=== PATIENT | female | born 1975 | race Caucasian/White ===

== ENCOUNTER → 2022-02-18 08:49 | Outpatient (BNVA) | payer OTHER, SELFPAY | PROVIDERS: Family Provider Family Medicine; PCP Family Medicine; Visit Provider Family Medicine | DX: E78.5 Hyperlipidemia, unspecified (principal); E83.119 Hemochromatosis, unspecified; G62.9 Polyneuropathy, unspecified; I10 Essential (primary) hypertension; G47.00 Insomnia, unspecified | CPT/HCPCS: 80053; 80061; 82607; 82728; 83550; 84443; 85025 ==

== ENCOUNTER 2022-09-01 14:22 | Emergency (ER) | payer OTHER, SELFPAY ==
--- NOTE | 2022-09-01 14:23 | XR_ITS ---
WS: [id number] Exam: XR hand RT min 3V* [id number] Date/Time of Exam: 09/01/2022 2:33 PM Reason For Exam: Laceration to pinky and ring finger No fracture or dislocation noted. Soft tissue laceration of the distal fifth finger. No soft tissue f oreign bodies are seen. XR/XR hand RT min 3V* [id number] IMPRESSION: 1. No bony injury noted. 2. Soft tissue laceration of the distal fifth finger.
[2022-09-01 14:34] VITALS: PULSE 76; RESP 16; TEMP 36.6; O2SAT 97; BMI 38.7
--- NOTE | 2022-09-01 14:56 | W.ED.WOUNDLC ---
HPI - Wound/Laceration General: Chief Complaint: Wound/Laceration Stated Complaint: right hand, pinky and ring finger lac Time Seen by Provider: 09/01/22 14:27 History of Present Illness: Patient is a 47-year-old female comes to the ED with a laceration to fourth and fifth digits on right hand. 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 She reached into one of the thinks and there was a knife under the water and it caused a small laceration to fourth and fifth digits on right hand. Bleeding was controlled with bandage. Patient is up-to-date on her tetanus. Associated symptoms: Denies chills, fever(s), nausea or vomiting Review of Systems Const: Denies: fever(s), chills or fatigue Eyes: Denies: change in vision or eye discomfort ENMT: Denies: throat pain, odynophagia, nasal discharge or nasal congestion Card: Denies: chest pain, palpitations, edema, swelling of feet/ankles, dyspnea on exertion or orthopnea Resp: Denies: dyspnea, productive cough or non-productive cough GI: Denies: abdominal pain, nausea, vomiting, diarrhea, constipation or hematochezia : Denies: flank pain, dysuria or hematuria Musc: Denies: neck pain, back pain or extremity swelling Skin/Breast: Reports: new lesions (Laceration to fourth and fifth digit right hand.); Denies: rash Neuro: Denies: headache(s), numbness in extremities or weakness in extremities [facility] ED PFSH: Medical History Dyslipidemia Hemochromatosis History of renal stone Hypertension Insomnia Neuropathy Tobacco dependence due to cigarettes Surgical History History of dilatation and curettage History of nonchemical tubal occlusion History of tonsillectomy Family History Father CAD (coronary artery disease) Hypertension Hyperlipidemia Grandmother Cancer breast Denies family history of Diabetes Chronic kidney disease (CKD) Stroke Social History Smoking and tobacco status: current every day smoker cigarettes Packs smoked per day: 0.5 Quit status (tobacco): considering quitting Alcohol intake: current Alcohol intake frequency: holidays/special occasions only Substance/Drug Use: never Lives independently: Yes Household members: spouse and children Marital status: Number of children: 2 Current occupational status: employed 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 [employer] Physical Exam Const: COMMON NORMALS: no acute distress, patient oriented x3, healthy appearing and alert HENMT: COMMON NORMALS: normocephalic HEAD & SCALP: normocephalic MOUTH: Normal oral and palatal mucosa present THROAT: posterior oropharynx normal and uvula midline Neck/C-Spine: COMMON NORMALS: supple GENERAL: Yes normal visual inspection Resp: COMMON NORMALS: normal respiratory effort, No retractions, No use of accessory muscles and clear to auscultation bilaterally AUSCULTATION: clear to auscultation bilaterally Cardio: COMMON NORMALS: regular rate, regular rhythm, S1 normal heart sound present, S2 normal heart sound present, No gallops present (Cardio), No clicks present (Cardio), No murmurs present (Cardio) and Peripheral pulses 2+ throughout RATE: regular rate RHYTHM: regular rhythm HEART SOUNDS: S1 normal heart sound present and S2 normal heart sound present PERIPHERAL PULSES: Peripheral pulses 2+ throughout GI: COMMON NORMALS: Normal to inspection, nondistended, normoactive bowel sounds present, Soft to palpation, non-tender and no masses PALPATION: Yes Soft to palpation : COMMON NORMALS: Yes no CVA tenderness BLADDER/KIDNEY EXAM: Yes no CVA tenderness Back/Pelvis: COMMON NORMALS: no CVA tenderness Extremity: NARRATIVE EXTREMITY EXAM: Right hand?fourth digit linear 0.5 centimeter laceration on pad of finger that is superficial with no active bleeding. She also has a very small superficial laceration on her fifth digit on the pad of finger that is less than 0.25 cm in length. No active bleeding. Neuro: COMMON NORMALS: patient oriented x3 SENSORIUM/ORIENTATION: Yes alert GAIT: Yes Normal gait present Skin: GENERAL SKIN EXAM: dry skin Procedures Laceration Laceration 1: Site: hand (Fourth digit) Side (If applicable): right Size (cm): 0.5 Description: linear and clean Depth: simple, single layer Local Anesthetic: lidocaine 1% Amount of anesthesia used (mL): 3 Pre-repair: irrigated extensively (With normal saline) Skin layer closed with: nylon Size (cm): 4-0 Number of sutures: 2 Technique: simple, interrupted Course Vital Signs: Vital signs: Vital Signs Temperature 97.9 F 09/01/22 14:34 Pulse Rate 76 09/01/22 14:34 Respiratory Rate 16 09/01/22 14:34 Pulse Oximetry 97 09/01/22 14:34 MDM - Wound/Laceration Medical Decision Making Patient is a 47-year-old female comes to the ED with a laceration to fourth and fifth digits on right hand. 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 She reached into one of the [employer] and there was a knife under the water and it caused a small laceration to fourth and fifth digits on right hand. Bleeding was controlled with bandage. Patient is up-to-date on her tetanus. Vital stable.Right hand?fourth digit linear 0.5 centimeter laceration on pad of finger that is superficial with no active bleeding. She also has a very small superficial laceration on her fifth digit on the pad of finger that is less than 0.25 cm in length. No active bleeding. Right hand x-ray showed no acute findings. Lacerations were irrigated extensor with normal saline. Lidocaine 1% was used as local and 2 sutures were placed to close laceration on distal fourth digit. See procedure notes for details. Patient tolerated procedure well. She was stable for discharge home and diagnosed with finger lack. Told to have sutures removed within the next 7 to 10 days. Patient understood and agreed with plan. Lab Data Radiology Impressions Hand X-Ray 09/01/22 14:23 IMPRESSION: 1. No bony injury noted. 2. Soft tissue laceration of the distal fifth finger. Discharge Plan Discharge Patient Disposition: Home Clinical Impression: Finger laceration Condition: Stable Prescriptions: No Action atorvastatin 40 mg tablet 40 mg PO DAILY Qty: 30 5RF amitriptyline 50 mg tablet 50 mg PO .qhs Qty: 30 5RF atenolol 25 mg tablet 25 mg PO DAILY Qty: 30 5RF lisinopril 20 mg tablet 20 mg PO DAILY Qty: 30 5RF Discharge Orders: Discharge ED (Routine); Ordered 09/01/22 Ordered By: Adam Menezes Referrals: Shona Rendon MD [Primary Care Provider] - Discharge Diet: Regular Discharge Activity: Limit activity as instructed Patient Instructions: Finger Laceration (ED) Activity Restrictions/Additional Instructions: Keep laceration site clean and dry. Clean daily with soap and water and thencover with bandage. Watch for signs of infection such as redness, warmth, increased tenderness and puslike drainage. If you see the signs of infection return to the ED, urgent care or PCP for reevaluation. call your PCP to schedule a follow-up appointment for reevaluation and suture removal in about 7 days. Continue taking all home meds. Follow discharge plans as discussed. You can return to the ED if symptoms worsen. Coding Level of Care Code ED Feather Duster Winder for Luther Gotti
[2022-09-01] MEDS: neomycin-poly-bacitracin oint 28 gm 1 APPLIC TOPICAL (15:09)
== END 2022-09-01 15:25 | disposition home or self-care (01) ==
PROVIDERS: Emergency Provider Physician Assistant; PCP Family Medicine
DX: S61.214A Laceration without foreign body of right ring finger without damage to nail, initial encounter (principal); S61.216A Laceration without foreign body of right little finger without damage to nail, initial encounter; F17.210 Nicotine dependence, cigarettes, uncomplicated; E78.5 Hyperlipidemia, unspecified; I10 Essential (primary) hypertension; W26.0XXA Contact with knife, initial encounter; Y93.G1 Activity, food preparation and clean up; Y92.233 Cafeteria of hospital as the place of occurrence of the external cause; Y99.0 Civilian activity done for income or pay
CPT/HCPCS: 12001; 73130; 99283

== ENCOUNTER 2022-11-15 13:44 | Outpatient (RCR) | payer OTHER, SELFPAY | END 2022-12-14 23:59 | disposition home or self-care (01) | LOC: SPT 13:44 | PROVIDERS: PCP Family Medicine; Visit Provider Family Medicine | DX: M54.32 Sciatica, left side (principal) | CPT/HCPCS: 97110; 97161; G0283 ==

== ENCOUNTER 2022-12-13 15:44 | Outpatient (CLI) | payer OTHER, SELFPAY ==
--- NOTE | 2022-12-13 16:00 | MR_ITS ---
WS: [id number] MRI LUMBAR SPINE NONCONTRAST HISTORY: l sciatica, not improved w/ conservative COMPARISON: No similar studies. TECHNIQUE: Sagittal and axial multisequence imaging is submitted. L3 anterolisthesis by 2 mm. Otherwise alignment is normal. Mild disc desiccation throughout the lumbar spine. No acute fractures. There is a very small amount o f marrow edema in the RIGHT L4 and L5 pedicles. Conus terminates normally at L1-2 disc level. L1-L2: Normal. L2-L3: Mild annular disc bulging, facet and ligamentum flavum arthritis. No stenosis. L3-L4: Mild annular disc bulging with a LEFT foramen disc protrusion. Moderate ligamentum flavum and facet arthritis. Encroachment upon the traversing L4 nerve roots and mild central stenosis. LEFT fora men disc protrusion does not appear to be contacting the nerve root. L4-L5: Mild asymmetric disc bulging with a LEFT foramen disc protrusion with annular fissure. LEFT fo ramen disc protrusion contacts the traversing L5 nerve root. The nerve root is enlarged and there is an associated foramen disc protrusion. Mild narrowing of the LEFT foramen with minimal contact on the exiting LEFT L4 nerve root. No RIGHT foramen stenosis. L5-S1: Mild disc bulging with a LEFT foramen disc protrusion with annular fissure. Disc protrusion sl ightly contacting the LEFT S1 nerve root and probably the undersurface of the RIGHT L5 nerve root. Mi ld LEFT foramen stenosis. IMPRESSION: 1. L3 anterolisthesis by 2 mm. 2. L3-4: LEFT foraminal disc protrusion with moderate ligamentum flavum and facet arthritis. Mild dis c encroachment upon the traversing L4 nerve roots and mild central stenosis. 3. L4-5: LEFT foraminal disc protrusion contacts the traversing L5 nerve root. Nerve root is enlarged with the associated disc protrusion. Mild LEFT foramen stenosis. 4. L5-S1: LEFT foraminal disc protrusion with annular fissure mild disc protrusion contact on the LEF T S1 nerve root and minimal contact on the RIGHT L5 nerve root. Mild LEFT foramen stenosis.
== END 2022-12-13 15:45 | disposition home or self-care (01) ==
LOC: RAD 15:46
PROVIDERS: PCP Family Medicine; Visit Provider Family Medicine
DX: M54.32 Sciatica, left side (principal); M51.27 Other intervertebral disc displacement, lumbosacral region; M48.07 Spinal stenosis, lumbosacral region
CPT/HCPCS: 72148

== ENCOUNTER 2022-12-15 06:00 | Outpatient (RCR) | payer OTHER, SELFPAY | END 2023-01-13 23:59 | disposition home or self-care (01) | LOC: SPT 06:00 | PROVIDERS: PCP Family Medicine; Visit Provider Family Medicine | DX: M54.32 Sciatica, left side (principal) | CPT/HCPCS: 97110; G0283 ==

== ENCOUNTER → 2022-12-21 14:59 | Outpatient (BNVA) | payer OTHER, SELFPAY | PROVIDERS: PCP Family Medicine; Visit Provider Physician Assistant | DX: M43.16 Spondylolisthesis, lumbar region; M51.16 Intervertebral disc disorders with radiculopathy, lumbar region; M48.061 Spinal stenosis, lumbar region without neurogenic claudication | CPT/HCPCS: 72110 ==

== ENCOUNTER 2023-01-14 06:00 | Outpatient (RCR) | payer OTHER, SELFPAY | END 2023-02-13 23:59 | disposition home or self-care (01) | LOC: SPT 06:00 | PROVIDERS: PCP Family Medicine; Visit Provider Family Medicine | DX: M54.32 Sciatica, left side (principal) | CPT/HCPCS: 97110; G0283 ==

== ENCOUNTER → 2023-03-15 15:18 | Outpatient (BNVA) | payer OTHER, MEDICAID, SELFPAY | PROVIDERS: PCP Family Medicine; Visit Provider Family Medicine | DX: J02.9 Acute pharyngitis, unspecified (principal); R19.7 Diarrhea, unspecified | CPT/HCPCS: 87400; 87420; 87426 ==

== ENCOUNTER → 2024-04-06 09:21 | Outpatient (BNVA) | payer OTHER, SELFPAY | PROVIDERS: PCP Family Medicine; Visit Provider Family Medicine | DX: I10 Essential (primary) hypertension (principal); E78.5 Hyperlipidemia, unspecified | CPT/HCPCS: 80053; 80061 ==

== ENCOUNTER 2024-04-13 08:37 | Outpatient (CLI) | payer OTHER, SELFPAY ==
--- NOTE | 2024-04-13 08:40 | MM_ITS ---
WS: [id number] BILATERAL SCREENING DIGITAL TOMOSYNTHESIS MAMMOGRAM WITH CAD HISTORY: breast cancer screening COMPARISON: None available. Bilateral CC and MLO views with tomosynthesis and synthetic mammography submitted. Computer aided detection analyzed. Breast composition: There are scattered areas of fibroglandular density. No suspicious masses, microcalcifications or architectural distortion. Scattered asymmetries and benign calcifications within each breast. No suspicious findings. MM/MM scr BI tomosynthesis [id number] IMPRESSION: BI-RADS: 2 - Benign. FOLLOW UP: 1 Year Follow-up
== END 2024-04-13 08:38 | disposition home or self-care (01) ==
PROVIDERS: PCP Family Medicine; Visit Provider Family Medicine
DX: Z12.31 Encounter for screening mammogram for malignant neoplasm of breast (principal); I10 Essential (primary) hypertension; R92.323 Mammographic fibroglandular density, bilateral breasts; N64.89 Other specified disorders of breast; R92.1 Mammographic calcification found on diagnostic imaging of breast
CPT/HCPCS: 77063; 77067

== ENCOUNTER 2024-04-18 06:32 | Day surgery (SDC) | payer OTHER, SELFPAY ==
[2024-04-18 06:46] VITALS: BP 166/115; PULSE 76; RESP 18; TEMP 36.5; O2SAT 96
[2024-04-18 06:48] VITALS: BMI 39.5
[2024-04-18] MEDS: sodium chloride 0.9% 1,000 ML 30 ML IV (07:05)
--- NOTE | 2024-04-18 07:54 | W.PM.OPSUD ---
Surgery/Procedure H&P Update DATE OF PROCEDURE: April 18, 2024 DATE H&P PERFORMED: 04/09/24 H&P UPDATE INFORMATION: I have reviewed H&P completed within last 30 days, I have examined patient prior to procedure and No changes to prior documentation PLANNED PROCEDURE: Operation Date: 04/18/24 07:45 Proposed Procedures p Colonoscopy 31613 G0121 Z12.11(Not Applicable) - Richard Adams, DO
--- NOTE | 2024-04-18 07:58 | ANES.PREANE2 ---
Pre-Anesthetic Assessment Height/Weight: Height 5 ft 8 in Weight 260 lb Temp Pulse Resp BP Pulse Ox O2 Del Method 97.7 F 76 18 166/115 96 Room Air 04/18/24 06:46 04/18/24 06:46 04/18/24 06:46 04/18/24 06:46 04/18/24 06:46 04/18/24 06:46 Preop Diagnosis: Screening colonoscopy Operation Date: 04/18/24 07:45 Proposed Procedures p Colonoscopy 76327 G0121 Z12.11(Not Applicable) - Richard Adams, DO Was Beta Radha taken within 24 hours: Yes Was Clonidine taken within 24 hours: N/A Last intake: Intake Last Liquid Date 04/17/24 Last Liquid Time 20:30 Last Solid Date 04/16/24 Last Solid Time 20:00 Social Tobacco and No alcohol Exam alert, oriented x 3, clear to auscultation bilaterally and regular rate & rhythm Airway Submandibular: within normal limits Cervical ROM: within normal limits Mallampati: Class I Dentition: full Anesthetic Plan ASA status: 3 Anesthesia: MAC Other: No prior issues with anesthesia Completed bowel prep History of hypertension on atenolol and lisinopril. Preop BP 166/115 Vapes nicotine Prior history of hemochromatosis, labs from 04/06/2024 reviewed and acceptable for procedure METs greater than 4 Plan for MAC anesthetic Medications/Allergies Home Medications ?Medication ?Instructions ?Recorded ?Confirmed ?Last Taken ?Type lisinopril 20 mg tablet 20 mg PO DAILY #30 tabs 02/29/24 04/16/24 04/17/24 Rx duloxetine 60 mg capsule,delayed 60 mg PO DAILY #30 caps 03/27/24 04/16/24 04/17/24 Rx release amitriptyline 100 mg tablet 100 mg PO BEDTIME 04/16/24 04/16/24 04/16/24 History atenolol 25 mg tablet 25 mg PO DAILY 04/16/24 04/16/24 04/18/24 04:30 History atorvastatin 40 mg tablet 40 mg PO DAILY 04/16/24 04/16/24 04/17/24 History cyclobenzaprine 5 mg tablet 5 mg PO TID PRN Muscle Spasm 04/16/24 04/16/24 04/16/24 History gabapentin 300 mg capsule 300 mg PO BID 04/16/24 04/16/24 04/17/24 History Allergies Allergy/AdvReac Type Severity Reaction Status Date / Time No Known Allergies Allergy Verified 04/09/24 13:51 [facility] Anesthesia Medical History Tobacco dependence due to cigarettes Neuropathy Hemochromatosis Insomnia History of renal stone Dyslipidemia Hypertension Surgical History History of dilatation and curettage History of tonsillectomy History of nonchemical tubal occlusion Family History Father CAD (coronary artery disease) Hypertension Hyperlipidemia Grandmother Cancer breast Denies family history of Diabetes Chronic kidney disease (CKD) Stroke Social History Smoking and tobacco/nicotine status: former use of tobacco/nicotine Quit status (tobacco/nicotine): considering quitting Alcohol intake: current Alcohol intake frequency: holidays/special occasions only Substance/Drug Use: never Lives independently: Yes Household members: spouse and children Marital status: Number of children: 2 Current occupational status: employed 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
[2024-04-18 08:28] VITALS: BP 115/90; PULSE 63; RESP 16; TEMP 36.2; O2SAT 96
[2024-04-18 08:41] VITALS: BP 129/77; PULSE 67; RESP 18; O2SAT 97
--- NOTE | 2024-04-18 08:53 | ANE.PACU2 ---
Inpatient post-anesthesia follow up: Airway intact: Yes Vital signs: Temperature 97.2 F Pulse Rate 67 Respiratory Rate 18 Blood Pressure 129/77 Pulse Oximetry 97 Oxygen Delivery Me thod Room Air Oxygen Flow Rate 2 Fraction of Inspir ed Oxygen Hydration adequate: Yes Nausea and vomiting: No Pain level: 1 Mental status: Baseline
== END 2024-04-18 08:53 | disposition home or self-care (01) ==
PROVIDERS: PCP Family Medicine; Visit Provider Surgery
PROC: 0DJD8ZZ Inspection of Lower Intestinal Tract, Via Natural or Artificial Opening Endoscopic (ICD-10-PCS; CPT 45378; principal; 2024-04-18 07:45)
DX: Z12.11 Encounter for screening for malignant neoplasm of colon (principal); K63.5 Polyp of colon; E78.5 Hyperlipidemia, unspecified; I10 Essential (primary) hypertension; F17.290 Nicotine dependence, other tobacco product, uncomplicated; Z79.899 Other long term (current) drug therapy
CPT/HCPCS: 45385; 88305; J2704; J7030

== ENCOUNTER 2024-06-28 07:58 | Emergency (ER) | payer OTHER, SELFPAY ==
[2024-06-28] VITALS (7 sets, daily range): BP systolic 107–134; BP diastolic 65–91; PULSE 68–89; RESP 17–18; TEMP 37; O2SAT 92–98; BMI 37.2
--- NOTE | 2024-06-28 07:59 | CTR_ITS ---
PROCEDURE INFORMATION: Exam: CT Head Without Contrast Exam date and time: 06/28/2024 8:17 AM Age: 49 years old Clinical indication: Dizziness; Additional info: Vision changes, dizzy TECHNIQUE: Imaging protocol: Computed tomography of the head without contrast. Radiation optimization: All CT scans at this facility use at least one of these dose optimization techniques: automated exposure control; mA and/or kV adjustment per patient size (includes targeted exams where dose is matched to clinical indication); or iterative reconstruction. COMPARISON: No relevant prior studies available. RADIATION DOSE METRICS: Total DLP (mGy-cm): 1050.04 FINDINGS: Brain: There is no evidence of acute parenchymal hemorrhage, extra-axial collection, or acute infarction. There is no mass effect, midline shift, or downward herniation. Cerebral ventricles: No ventriculomegaly. Paranasal sinuses: There is mild paranasal sinus mucosal thickening. Mastoid air cells: Visualized mastoid air cells are well aerated. Bones: Unremarkable. No acute fracture. Soft tissues: Unremarkable. CT/CT head wo con* [id number] IMPRESSION: No acute intracranial abnormality.
--- NOTE | 2024-06-28 08:00 | XR_ITS ---
WS: [id number] Exam: XR chest 1V portable [id number] Date/Time of Exam: 06/28/2024 8:14 AM Reason For Exam: dyspnea/cough No priors. Lungs are fully inflated and clear. Normal cardiomediastinal silhouette and regional bony elements. Costophrenic angles are sharp. Monitoring leads superimpose the chest. XR/XR chest 1V portable [id number] IMPRESSION: 1. No acute cardiopulmonary finding.
--- NOTE | 2024-06-28 08:09 | ECG_ITS ---
[facility] Date[facility] 2024-[facility]28 Pat Name: Chasity Kline Department: Room: Gender: Female [employer] Installer: : 1975 Requested By: Felix Lauren Order Number: [id number] Reading MD: ESTRADA OSHEA Measurements Intervals [place] Rate: 81 P: 46 LA: 179 QRS: -28 QRSD: 97 T: 35 QT: 349 QTc: 405 Interpretive Statements SINUS RHYTHM LOW QRS VOLTAGE IN PRECORDIAL LEADS [QRS DEFLECTION < 1.0 mV IN CHEST LEADS] PATTERN CONSISTENT WITH PULMONARY DISEASE INCOMPLETE RIGHT BUNDLE BRANCH BLOCK [90+ ms QRS DURATION, TERMINAL R IN V1/V2, 40+ ms S IN I/aVL/V4/V5/V6] PROBABLE SEPTAL MYOCARDIAL INFARCTION , OF INDETERMINATE AGE [35 ms Q WAVE IN V1/V2] No previous ECG available for comparison Electronically Signed On 06-28-2024 23:30:09 CDT by ESTRADA OSHEA [email or web address]
[2024-06-28 08:10] LABS: Glucose Point of Care 133 mg/dL (70-110)
[2024-06-28 08:17] LABS: Basophils # 0.1 10^3/uL (0.0-0.1); Basophils % 0.6 %; Eosinophils # 0.1 10^3/uL (0.0-0.8); Eosinophils % 1.2 %; Lymphocytes # 1.8 10^3/uL (0.8-4.8); Lymphocytes % 20.1 %; Mean Corpuscular HGB Conc 30.7 g/dL (30-55); Mean Corpuscular Hemoglobin 27.3 pg (27-33); Mean Corpuscular Volume 89.1 fl (85-98); Monocytes # 0.3 10^3/uL (0.2-0.9); Monocytes % 3.6 %; Neutrophils # 6.53 10^3/uL (1.8-7.7); Neutrophils % 74.2 %; Nucleated Red Blood Cells % 0 %; Platelet Count 326 10^3/cmm (157-399); Red Blood Count 4.94 10^6/uL (3.85-5.65); Red Cell Distribution Width 15.4 % (12.1-15.1); White Blood Count 8.81 10^3/uL (3.29-11.43)
[2024-06-28 08:34] LABS: Alanine Aminotransferase 20 U/L (0-33); Albumin Level 4.2 g/dL (3.5-5.2); Alkaline Phosphatase 106 U/L (35-105); Anion Gap 16.2 (5-19); Aspartate Amino Transferase 20 U/L (0-32); Blood Urea Nitrogen 9 mg/dL (6-20); Calcium 9.9 mg/dL (8.5-10.5); Carbon Dioxide 27 mmol/L (22-29); Chloride 98 mmol/L (98-107); Creatinine Clr Calc Pharmacy 69.1702; Glomerular Filtration Rate 43.7 mL/min (90-130); Glucose 111 mg/dL (65-115); Osmolality Calculated 283 mOsm/kg (285-295); Potassium 4.2 mmol/L (3.5-5.1); Sodium 137 mmol/L (136-145); Total Bilirubin 0.3 mg/dL (0.15-1.2); Total Protein 8.2 g/dL (6.6-8.7)
--- NOTE | 2024-06-28 08:50 | ED_ITS ---
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 It improved after she sat down and cooled off she states she felt very hot. She had no chest pain no abdominal pain. She had some blurry vision with that that is improved already as well. Associated symptoms: Denies chest pain or chills Related Data Home Medications ?Medication ?Instructions ?Recorded ?Confirmed amitriptyline 100 mg tablet 100 mg PO BEDTIME 04/16/24 07/05/24 atenolol 25 mg tablet 25 mg PO DAILY 04/16/2406/15 atorvastatin 40 mg tablet 40 mg PO DAILY 04/16/2406/15 duloxetine 60 mg capsule,delayed 60 mg PO DAILY 07/05/24 release Previous Rx's ?Medication ?Instructions ?Recorded lisinopril 20 mg tablet 20 mg PO DAILY #30 tabs 02/14 07/08 cyclobenzaprine 5 mg tablet 5 mg PO TID PRN Muscle Spa sm #90 05/02/24 tabs gabapentin 300 mg capsule 300 mg PO BID #60 caps 05/02 Allergies Allergy/AdvReac Type Severity Reaction Status Date / Time No Known Allergies Allergy Verified 07/04/24 12:54 Review of Systems 2 Const: Denies: fever(s) or chills Card: Denies: chest pain Resp: Denies: dyspnea GI: Denies: abdominal pain : Denies: dysuria, urinary frequency or urinary urgency Musc: Denies: neck pain or back pain Skin/Breast: Denies: rash PFSH ED 2 PFSH: Medical History Tobacco dependence due to cigarettes Neuropathy Hemochromatosis Insomnia History of renal stone Dyslipidemia Hypertension Surgical History History of dilatation and curettage History of tonsillectomy History of nonchemical tubal occlusion Family History Father CAD (coronary artery disease) Hypertension Hyperlipidemia Grandmother Cancer breast Denies family history of Diabetes Chronic kidney disease (CKD) Stroke Social History Smoking and tobacco/nicotine status: never used tobacco/nicotine Quit status (tobacco/nicotine): considering quitting Alcohol intake: current Alcohol intake frequency: holidays/special occasions only Substance/Drug Use: never Lives independently: Yes Household members: spouse and children Marital status: Number of children: 2 Current occupational status: employed 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 [employer] Physical Exam 2 Const: GENERAL APPEARANCE: cooperative ORIENTATION/CONSCIOUSNESS: Yes awake, Yes oriented to person, Yes oriented to place and Yes oriented to time HENMT: COMMON NORMALS: normocephalic, atraumatic and hearing grossly normal bilaterally HEAD & SCALP: normocephalic and atraumatic Resp: COMMON NORMALS: normal respiratory effort, No retractions, No use of accessory muscles and clear to auscultation bilaterally AUSCULTATION: clear to auscultation bilaterally Cardio: COMMON NORMALS: regular rate, regular rhythm and No murmurs present (Cardio) RATE: regular rate RHYTHM: regular rhythm GI: COMMON NORMALS: Soft to palpation and No hepatosplenomegaly present A USCULTATION: Yes normoactive bowel sounds PALPATION: Yes Soft to palpation, No Tenderness to palpation present (GI), No Guarding due to palpation present (GI) and Yes No hepatosplenomegaly present Extremity: COMMON NORMALS: normal to inspection, capillary refill normal, no clubbing, cyanosis or edema, no calf tenderness and no pedal edema Neuro: SENSORIUM/ORIENTATION: Yes oriented to person, Yes oriented to place and Yes oriented to time OTHER: No facial extremity. Leg raising negative bilaterally strength 5 out of 5 in the legs. No ataxia in the arms or legs. No arm drift no leg drift. No focal neurologic deficits. Skin: COMMON NORMALS: no rashes or lesions noted GENERAL SKIN EXAM: no rashes or lesions noted Course 2 Vital Signs: Vital signs: Vital Signs Temperature 98.6 F 06/28/24 08:11 Pulse Rate 78 06/28/24 12:24 Respiratory Rate 17 06/28/24 12:24 Blood Pressure 118/87 06/28/24 12:24 Pulse Oximetry 98 06/28/24 12:24 Oxygen Delivery Me thod Room Air 06/28/24 12:11 MDM - Dizziness Medical Decision Making Labs imaging and EKG reviewed. Believe patient had an orthostatic episode. She has no focal neurologic deficits. No findings suggestive of stroke at this time. CT of the head is negative. She has a mild acute kidney injury. She was given IV fluid she is feeling some better I think we can discharge her home at this point she should recheck with her primary care doctor within the week to recheck her creatinine and reevaluate blood pressure consideration of adjustment of medications. No changes at this time recheck for any worsening or changes symptoms. Medical Records I reviewed the patient's medical records. Lab Data I reviewed the patient's lab results. 06/28/24 08:06 06/28/24 08:[address] 06/28/24 07:59 IMPRESSION: No acute intracranial abnormality. Chest X-Ray 06/28/24 08:00 IMPRESSION: 1. No acute cardiopulmonary finding. Laboratory Results WBC 8.81 10^3/uL (3.29-11.43) 06/28/24 08:06 RBC 4.94 10^6/uL (3.85-5.65) 06/28/24 08:06 Hgb 13.50 g/dL (11.27-16.99) 06/28/24 08:06 Hct 44.0 % (36-47) 06/28/24 08:06 MCV 89.1 fl (85-98) 06/28/24 08:06 MCH 27.3 pg (27-33) 06/28/24 08:06 MCHC 30.7 g/dL (30-55) 06/28/24 08:06 RDW 15.4 % (12.1-15.1) H 06/28/24 08:06 Plt Count 326 10^3/cmm (157-399) 06/28/24 08:06 MPV 10.0 fL (7.4-10.4) 06/28/24 08:06 Neut % (Auto) 74.2 % 06/28/24 08:06 Lymph % (Auto) 20.1 % 06/28/24 08:06 [place] % (Auto) 3.6 % 06/28/24 08:06 Eos % (Auto) 1.2 % 06/28/24 08:06 Baso % (Auto) 0.6 % 06/28/24 08:06 Neut # (Auto) 6.53 10^3/uL (1.8-7.7) 06/28/24 08:06 Lymph # (Auto) 1.8 10^3/uL (0.8-4.8) 06/28/24 08:06 [place] # (Auto) 0.3 10^3/uL (0.2-0.9) 06/28/24 08:06 Eos # (Auto) 0.1 10^3/uL (0.0-0.8) 06/28/24 08:06 Baso # (Auto) 0.1 10^3/uL (0.0-0.1) 06/28/24 08:06 Nucleated RBC % (auto) 0 % 06/28/24 08:06 Nucleated RBCs # 0.0 /100WBC 06/28/24 08:06 Sodium 137 mmol/L (136-145) 06/28/24 08:06 Potassium 4.2 mmol/L (3.5-5.1) 06/28/24 08:06 Chloride 98 mmol/L (98-107) 06/28/24 08:06 Carbon Dioxide 27 mmol/L (22-29) 06/28/24 08:06 Anion Gap 16.2 (5-19) 06/28/24 08:06 BUN 9 mg/dL (6-20) 06/28/24 08:06 Creatinine 1.3 mg/dL (0.5-0.9) H 06/28/24 08:06 GFR Calculation 43.7 mL/min (90-130) L 06/28/24 08:06 Glucose 111 mg/dL (65-115) 06/28/24 08:06 POC Glucose 133 mg/dL (70-110) H 06/28/24 08:05 Calculated Osmolality 283 mOsm/kg (285-295) L 06/28/24 08:06 Calcium 9.9 mg/dL (8.5-10.5) 06/28/24 08:06 Total Bilirubin 0.3 mg/dL (0.15-1.2) 06/28/24 08:06 AST 20 U/L (0-32) 06/28/24 08:06 ALT 20 U/L (0-33) 06/28/24 08:06 Alkaline Phosphatase 106 U/L (35-105) H 06/28/24 08:06 Total Protein 8.2 g/dL (6.6-8.7) 06/28/24 08: Albumin 4.2 g/dL (3.5-5.2) 06/28/24 08: Globulin 4.0 g/dL (1.3-4.6) 06/28/24 08:06 Urine Color Yellow (Yellow) 06/28/24 08: Urine Appearance Cloudy (CLEAR) A 06/28/24 08: Urine pH 5.5 (5-7) 06/28/24 08: Ur Specific [place] 1.017 (1.005-1.030) 06/28/24 08: Urine Protein 1+ (Negative) A 06/28/24 08: Urine Glucose (UA) Negative (Normal) 06/28/24 08: Urine Ketones Trace (Negative) 06/28/24 08: Urine Blood 2+ (Negative) A 06/28/24 08: Urine Nitrate Negative (Negative) 06/28/24 08: Urine Bilirubin Negative (Negative) 06/28/24 08: Urine Urobilinogen 1.0 mg/dL (Negative) 06/28/24 08:29 Ur Leukocyte Esterase 2+ (Negative) A 06/28/24 08:29 Urine RBC 3-5 /hpf (0-2) 06/28/24 08:29 Urine WBC 21-50 /hpf (0-5) H 06/28/24 08:29 Ur Squamous Epith Cells 11-20 /hpf (0-5) H 06/28/24 08: Calcium Oxalate Crystal 5-10 /hpf H 06/28/24 08:29 Amorphous Sediment Not Reportable 06/28/24 08: Urine Bacteria 1+ /hpf (NONE) H 06/28/24 08: Hyaline Casts 28.94 /lpf 06/28/24 08: Urine Mucus Trace /hpf 06/28/24 08:29 All radiology interpretation(s) finalized by discharge Discharge Plan Discharge Patient Disposition: Home Clinical Impression: Orthostatic hypotension, NICOLE (acute kidney injury) Condition: Stable Prescriptions: No Action lisinopril 20 mg tablet 20 mg PO DAILY Qty: 30 5RF cyclobenzaprine 5 mg tablet 5 mg PO TID PRN (Reason: Muscle Spasm) Qty: 90 0RF Rx Instructions: TAKE ONE TABLET BY MOUTH THREE TIMES DAILY NEEDED for FOR MUSCLE SPASMS gabapentin 300 mg capsule 300 mg PO BID Qty: 60 0RF Rx Instructions: TAKE ONE CAPSULE BY MOUTH TWICE DAILY for nerve pain atorvastatin 40 mg tablet 40 mg PO DAILY Rx Instructions: TAKE ONE TABLET BY MOUTH DAILY atenolol 25 mg tablet 25 mg PO DAILY Rx Instructions: TAKE ONE TABLET BY MOUTH DAILY amitriptyline 100 mg tablet 100 mg PO BEDTIME Rx Instructions: TAKE ONE TABLET BY MOUTH AT BEDTIME duloxetine 60 mg capsule,delayed release(DR/EC) 60 mg PO DAILY Rx Instructions: TAKE ONE CAPSULE BY MOUTH DAILY Discharge Orders: Discharge ED (Routine); Ordered 06/28/24 Ordered By: Felix Lomas Referrals: Shona Rendon MD [Primary Care Provider, Family Practice] Discharge Diet: Usual diet Discharge Activity: Increase activity as tolerated Patient Instructions: Opioid Safety, Pain Management Activity Restrictions/Additional Instructions: Thank you for choosing [facility] for your healthcare needs today. It is very important that you follow up as instructed or that you return to the Emergency Department should you have concerns or if your condition changes or worsens in any way. You were seen in the emergency room after a near syncopal episode while at work. Suspect this is caused by the conditions as well as prolonged standing. Evaluation in the emergency room was negative there is no sign of acute stroke and CT of your head is negative. He did have mild elevation in your creatinine you are given IV fluids here. Your creatinine should be rechecked within the next week with your primary care doctor. Print Language: Malagasy Coding Level of Care Code ED Waxer Tender for Luther Gotti
[2024-06-28 08:55] LABS: Bilirubin Urine Negative (Negative); Blood Urine 2+ (Negative); Glucose Urine UA Negative (Normal); Ketones Urine Trace (Negative); Leukocyte Esterase Urine 2+ (Negative); Nitrate Urine Negative (Negative); Protein Urine 1+ (Negative); Specific Gravity, Urine 1.017 (1.005-1.030); Urine Appearance Cloudy (CLEAR); Urine Color Yellow (Yellow); pH Urine 5.5 (5-7)
[2024-06-28 08:58] LABS: Add Urine Microscopic? YES; Bacteria Urine 1+ /hpf; Hyaline Casts Urine 28.94 /lpf; WBC Urine 21-50 /hpf (0-5)
[2024-06-28 09:26] LABS: UA Slide Review UA Slide Review Perf
[2024-06-28 09:28] LABS: Add Urine Culture? No; Mucus Urine TRACE /hpf
[2024-06-28] MEDS: sodium chloride 0.9% 1,000 ML 999 ML IV ×2 (11:11→11:33)
--- NOTE | 2024-06-28 12:09 | PC.NURSE ---
Pt became hypotensive after starting blood, pt placed in trendelenburg. Got verbal orders from Dr. Lomas to give fluids and pressure bag them.
== END 2024-06-28 12:24 | disposition home or self-care (01) ==
PROVIDERS: Emergency Provider Family Medicine; PCP Family Medicine
DX: I95.1 Orthostatic hypotension (principal); N17.9 Acute kidney failure, unspecified; E78.5 Hyperlipidemia, unspecified; I10 Essential (primary) hypertension; Z72.0 Tobacco use
CPT/HCPCS: 36415; 36416; 70450; 71045; 80053; 81001; 82962; 85025; 93005; 96360; 99285; J7030

== ENCOUNTER → 2024-07-04 13:32 | Outpatient (BNVA) | payer OTHER, SELFPAY | PROVIDERS: PCP Family Medicine; Visit Provider Family Medicine | DX: N17.9 Acute kidney failure, unspecified (principal); E83.119 Hemochromatosis, unspecified; D64.9 Anemia, unspecified; R10.2 Pelvic and perineal pain; R63.5 Abnormal weight gain; Z01.818 Encounter for other preprocedural examination | CPT/HCPCS: 80048; 81003; 82728; 83540; 84443; 85025; 85651; 86140; 87086 ==

== ENCOUNTER → 2024-07-12 14:51 | Outpatient (BNVA) | payer OTHER, SELFPAY | PROVIDERS: PCP Family Medicine; Visit Provider Family Medicine | DX: I10 Essential (primary) hypertension (principal); G62.9 Polyneuropathy, unspecified; E78.5 Hyperlipidemia, unspecified | CPT/HCPCS: 80048 ==

== ENCOUNTER → 2024-08-13 14:42 | Outpatient (BNVA) | payer OTHER, SELFPAY | PROVIDERS: PCP Family Medicine; Visit Provider Family Medicine | DX: I10 Essential (primary) hypertension (principal) | CPT/HCPCS: 80048 ==

== ENCOUNTER → 2024-08-23 08:49 | Outpatient (BNVA) | payer OTHER, SELFPAY | PROVIDERS: PCP Family Medicine; Visit Provider Obstetrics & Gynecology | DX: N83.201 Unspecified ovarian cyst, right side (principal) | CPT/HCPCS: 76830 ==

== ENCOUNTER 2024-08-31 09:38 | Outpatient (CLI) | payer OTHER, SELFPAY ==
--- NOTE | 2024-08-31 09:47 | XR_ITS ---
WS: [id number] XR calcaneus RT min 2V 51588 REASON FOR EXAM: rt heel pain FINDINGS: No fracture or focal bone lesion. Moderate anterior and posterior calcaneal enthesophytes. No radiopaque soft tissue foreign body. XR/XR calcaneus RT min 2V 15582 IMPRESSION: No acute abnormality. Calcaneal enthesophytes.
== END 2024-08-31 09:39 | disposition home or self-care (01) ==
PROVIDERS: PCP Family Medicine; Visit Provider Family Medicine
DX: M77.31 Calcaneal spur, right foot (principal)
CPT/HCPCS: 73650

== ENCOUNTER → 2024-10-23 10:15 | Day surgery (SDC) | payer OTHER, SELFPAY ==
[2024-10-23] VITALS (11 sets, daily range): BP systolic 94–167; BP diastolic 60–96; PULSE 65–743; RESP 14–20; TEMP 36.5–36.9; O2SAT 94–100; BMI 39.5
--- NOTE | 2024-10-23 00:51 | W.PM.OPSFHP ---
Same Day Surgery H&P Indication for Procedure/HPI DATE OF PROCEDURE: October 23, 2024 CHIEF COMPLAINT/INDICATIONFOR SURGICAL PROCEDURE: menorrhagia PREOP DIAGNOSIS: menorrhagia PLANNED PROCEDURE: Operation Date: 10/23/24 12:10 Proposed Procedures p Hysteroscopy Hysteroscopy w/ Endometrial Sampling 72617, 64241, N93.9(Not Applicable) - Davion Ferguson MD s Poylpectomy(Not Applicable) - Davion Ferguson MD Medications/Allergies* Home Medications ?Medication ?Instructions ?Recorded ?Confirmed ?Type amitriptyline 100 mg tablet 100 mg PO 1XD 10/22/24 10/22/24 History atenolol 25 mg tablet 25 mg PO 1XD 10/22/24 10/22/24 History atorvastatin 40 mg tablet 40 mg PO DAILY 10/22/24 10/22/24 History cyclobenzaprine 5 mg tablet 5 mg PO TID 10/22/24 10/22/24 History duloxetine 60 mg capsule,delayed 60 mg PO DAILY 10/22/24 10/22/24 History release Allergies/Adverse Reactions Allergy/AdvReac Type Severity Reaction Status Date / Time No Known Allergies Allergy Verified 09/10/24 14:55 Pertinent History/Comorbid Conditions* Medical History (Updated 09/07/24 @ 06:41 by Davion Ferguson MD) Tobacco dependence due to cigarettes Neuropathy Hemochromatosis Insomnia History of renal stone Dyslipidemia Hypertension Surgical History (Updated 02/18/22 @ 08:12 by Shona Rendon MD) History of dilatation and curettage History of tonsillectomy History of nonchemical tubal occlusion Family History (Updated 02/18/22 @ 08:16 by Shona Rendon MD) CAD (coronary artery disease) Father Hyperlipidemia Father Cancer Grandmother breast Hypertension Father Denies family history of Diabetes Chronic kidney disease (CKD) Stroke Social History Smoking and tobacco/nicotine status: former use of tobacco/nicotine Quit status (tobacco/nicotine): considering quitting Alcohol intake: current Alcohol intake frequency: holidays/special occasions only Substance/Drug Use: never Lives independently: Yes Household members: spouse and children Marital status: Number of children: 2 Current occupational status: employed 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 Pertinent Exam Findings alert, oriented x 3, clear to auscultation bilaterally and regular rate & rhythm Recommendations Surgery/Procedure today Coding Level of Care Code Acute Code for Chg Fwd
--- NOTE | 2024-10-23 12:30 | ANES.PREANE2 ---
Pre-Anesthetic Assessment Height/Weight: Height 5 ft 8 in Weight 260 lb Temp Pulse Resp BP Pulse Ox O2 Del Method 98.2 F 78 18 167/96 97 Room Air 10/23/24 11:00 10/23/24 11:00 10/23/24 11:00 10/23/24 11:00 10/23/24 11:00 10/23/24 11:06 Preop Diagnosis: menorrhagia Operation Date: 10/23/24 12:10 Proposed Procedures p Hysteroscopy Hysteroscopy w/ Endometrial Sampling 03105, 12787, N93.9(Not Applicable) - Davion Ferguson MD s Poylpectomy(Not Applicable) - Davion Ferguson MD Was Beta Radha taken within 24 hours: N/A Was Clonidine taken within 24 hours: N/A Last intake: Intake Last Liquid Date 10/22/24 Last Liquid Time 22:00 Last Solid Date 10/22/24 Last Solid Time 19:30 Social Tobacco and No alcohol Exam alert, oriented x 3, clear to auscultation bilaterally and regular rate & rhythm Airway Submandibular: within normal limits Cervical ROM: within normal limits Mallampati: Class I Dentition: full Anesthetic Plan ASA status: 3 Anesthesia: General Other: No prior issues with anesthesia Completed bowel prep History of hypertension on atenolol and lisinopril. Preop BP 166/115 Vapes nicotine Prior history of hemochromatosis METs greater than 4 plant for GA Medications/Allergies Home Medications ?Medication ?Instructions ?Recorded ?Confirmed ?Last Taken ?Type norethindrone 1.5 mg-ethinyl 1 tab PO DAILY #84 tabs 08/27/24 10/22/24 10/21/24 Rx estradiol 30 mcg(21)/iron 75 mg(7) tablet (Junel FE 1.5/30 (28)) lisinopril 20 mg tablet 20 mg PO DAILY #30 tabs 09/04/24 10/22/24 10/22/24 Rx amitriptyline 100 mg tablet 100 mg PO 1XD 10/22/24 10/22/24 10/23/24 History atenolol 25 mg tablet 25 mg PO 1XD 10/22/24 10/22/24 10/22/24 History atorvastatin 40 mg tablet 40 mg PO DAILY 10/22/24 10/22/24 10/22/24 History cyclobenzaprine 5 mg tablet 5 mg PO TID 10/22/24 10/22/24 10/23/24 History duloxetine 60 mg capsule,delayed 60 mg PO DAILY 10/22/24 10/22/24 10/23/24 History release pregabalin 150 mg capsule 150 mg PO BID #60 caps 10/22/24 Unknown Rx Allergies Allergy/AdvReac Type Severity Reaction Status Date / Time No Known Allergies Allergy Verified 09/10/24 14:55 Current Medications Generic Name Dose Route Start Last Admin Trade Name Ce PRN Reason Stop Dose Admin Sodium Chloride 1,000 mls @ 30 mls/hr 10/23/24 10:30 10/23/24 11:24 Sodium Chloride 0.9% IV 10/24/24 10:29 30 mls/hr .Q24H PERLITA Administration PFS Anesthesia Medical History Tobacco dependence due to cigarettes Neuropathy Hemochromatosis Insomnia History of renal stone Dyslipidemia Hypertension Surgical History History of dilatation and curettage History of tonsillectomy History of nonchemical tubal occlusion Family History Father CAD (coronary artery disease) Hypertension Hyperlipidemia Grandmother Cancer breast Denies family history of Diabetes Chronic kidney disease (CKD) Stroke Social History Smoking and tobacco/nicotine status: former use of tobacco/nicotine Quit status (tobacco/nicotine): considering quitting Alcohol intake: current Alcohol intake frequency: holidays/special occasions only Substance/Drug Use: never Lives independently: Yes Household members: spouse and children Marital status: Number of children: 2 Current occupational status: employed 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
--- NOTE | 2024-10-23 13:54 | W.PM.OPSUD ---
Surgery/Procedure H&P Update DATE OF PROCEDURE: October 23, 2024 DATE H&P PERFORMED: 10/28/24 H&P UPDATE INFORMATION: I have reviewed H&P completed within last 30 days, I have examined patient prior to procedure and No changes to prior documentation PREOP DIAGNOSIS: menorrhagia PLANNED PROCEDURE: Operation Date: 10/23/24 12:10 Proposed Procedures p Hysteroscopy Hysteroscopy w/ Endometrial Sampling 79513, 17955, N93.9(Not Applicable) - Davion Ferguson MD s Poylpectomy(Not Applicable) - Davion Ferguson MD
--- NOTE | 2024-10-23 14:20 | PM.OP ---
Operative Report Date of procedure: October 23, 2024 Pre-op diagnosis: abnormal uterine bleeding Post-op diagnosis: same Post-op findings: normal endometrial cavity No polyps / fibroids Moderate amount of endometrial tissue Procedure done: hysteroscopy Curettage of uterus Implants: none Specimens removed/disposition: endometrial curettings Surgeon: Davion Ferguson MD Anesthesia: MAC Estimated blood loss (mL): 0 Complications: none Findings: see above Condition: stable Disposition: PACU Brief History: 49 y.o. with abnormal uterine bleeding Procedure: Patient was taken to the operating room. Anesthesia was induced. Patient was placed in dorsolithotomy position, prepped and draped for hysteroscopy. A bivalve speculum was placed in the vagina. The anterior lip of the cervix was grasped with a sharp-toothed tenaculum. The cervix was serially dilated with Hegar dilators. . A hysteroscope was placed into the endometrial cavity. The endometrial cavity was seen to be normal. There were no polyps or fibroids. There was a moderate amount of endometrial tissue. The hysteroscope was then removed. Endometrial curettage was done with a sharp curette. Endometrial tissue was sent to pathology. The sharp-toothed tenaculum was removed. There was no bleeding from the endometrial cavity or cervix. The patient was then placed supine and awakened and taken to the PACU. Postop condition: stable EBL: none Sponge and instruments counts were normal x 2 Complications: none
--- NOTE | 2024-10-23 15:00 | PC.NURSE ---
1500 - pt continues to complain of left eye burning - assessed per this nurse with no debris noted - applied small amount of saline into eye to attempt irrigation with little relief - Dr Arvizu notified
[2024-10-23] MEDS: ketorolac 0.5% Op 5 mL Btl 1 DROP EYE-BOTH (15:28)
--- NOTE | 2024-10-23 16:07 | ANES.PREANE2 ---
Pre-Anesthetic Assessment Height/Weight: Height 5 ft 8 in Weight 260 lb Temp Pulse Resp BP Pulse Ox O2 Del Method O2 Flow Rate 97.8 F 743 H 18 109/88 96 Room Air 8 10/23/24 15:30 10/23/24 15:30 10/23/24 15:30 10/23/24 15:30 10/23/24 15:30 10/23/24 15:30 10/23/24 14:36 Preop Diagnosis: menorrhagia Operation Date: 10/23/24 12:10 Proposed Procedures p Hysteroscopy Hysteroscopy w/ Endometrial Sampling 59006, 39016, N93.9(Not Applicable) - Davion Ferguson MD s Poylpectomy(Not Applicable) - Davion Ferguson MD Last intake: Intake Last Liquid Date 10/22/24 Last Liquid Time 22:00 Last Solid Date 10/22/24 Last Solid Time 19:30 Medications/Allergies Home Medications ?Medication ?Instructions ?Recorded ?Confirmed ?Last Taken ?Type norethindrone 1.5 mg-ethinyl 1 tab PO DAILY #84 tabs 08/27/24 10/22/24 10/21/24 Rx estradiol 30 mcg(21)/iron 75 mg(7) tablet (Junel FE 1.5/30 (28)) lisinopril 20 mg tablet 20 mg PO DAILY #30 tabs 09/04/24 10/22/24 10/22/24 Rx amitriptyline 100 mg tablet 100 mg PO 1XD 10/22/24 10/22/24 10/23/24 History atenolol 25 mg tablet 25 mg PO 1XD 10/22/24 10/22/24 10/22/24 History atorvastatin 40 mg tablet 40 mg PO DAILY 10/22/24 10/22/24 10/22/24 History cyclobenzaprine 5 mg tablet 5 mg PO TID 10/22/24 10/22/24 10/23/24 History duloxetine 60 mg capsule,delayed 60 mg PO DAILY 10/22/24 10/22/24 10/23/24 History release pregabalin 150 mg capsule 150 mg PO BID #60 caps 10/22/24 Unknown Rx Allergies Allergy/AdvReac Type Severity Reaction Status Date / Time No Known Allergies Allergy Verified 09/10/24 14:55 Current Medications Generic Name Dose Route Start Last Admin Trade Name Ce PRN Reason Stop Dose Admin Sodium Chloride 1,000 mls @ 30 mls/hr 10/23/24 10:30 10/23/24 15:23 Sodium Chloride 0.9% IV 10/24/24 10:29 Infused .Q24H PERLITA Infusion Ketorolac Tromethamine 1 drop 10/23/24 15:10 10/23/24 15:28 Ketorolac 0.5% Op 5 Ml Btl EYE-BOTH 1 drop QID PERLITA Administration [facility] Anesthesia Medical History Tobacco dependence due to cigarettes Neuropathy Hemochromatosis Insomnia History of renal stone Dyslipidemia Hypertension Surgical History History of dilatation and curettage History of tonsillectomy History of nonchemical tubal occlusion Family History Father CAD (coronary artery disease) Hypertension Hyperlipidemia Grandmother Cancer breast Denies family history of Diabetes Chronic kidney disease (CKD) Stroke Social History Smoking and tobacco/nicotine status: former use of tobacco/nicotine Quit status (tobacco/nicotine): considering quitting Alcohol intake: current Alcohol intake frequency: holidays/special occasions only Substance/Drug Use: never Lives independently: Yes Household members: spouse and children Marital status: Number of children: 2 Current occupational status: employed 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
--- NOTE | 2024-10-23 16:07 | ANE.PACU2 ---
Inpatient post-anesthesia follow up: Airway intact: Yes Vital signs: Temperature 97.8 F Pulse Rate 743 Respiratory Rate 18 Blood Pressure 109/88 Pulse Oximetry 96 Oxygen Delivery Me thod Room Air Oxygen Flow Rate 8 Fraction of Inspir ed Oxygen Hydration adequate: Yes Nausea and vomiting: No Pain level: 1 Mental status: Baseline Additional Comments: Patient with suspected left corneal abrasion. Ketorolac ophthalmic drops given. Prescribed eye antibiotics drops. Patient instructed to call if things do not improve in the next few days
[2024-10-23 16:15] LABS: OR HCG Qualitative Urine Negative (Negative)
== END | disposition home or self-care (01) ==
PROVIDERS: Student in an Organized Health Care Education/Training Program; PCP Family Medicine; Visit Provider Obstetrics & Gynecology
PROC: 0UJD8ZZ Inspection of Uterus and Cervix, Via Natural or Artificial Opening Endoscopic (ICD-10-PCS; CPT 58555; principal; 2024-10-23 12:10)
DX: N93.9 Abnormal uterine and vaginal bleeding, unspecified (principal); I10 Essential (primary) hypertension; F17.290 Nicotine dependence, other tobacco product, uncomplicated; E78.5 Hyperlipidemia, unspecified
CPT/HCPCS: 58558; 81025; 88305; J1100; J2250; J2405; J2704; J3010; J7030; J9999

== ENCOUNTER → 2025-01-25 11:01 | Outpatient (BNVA) | payer OTHER, SELFPAY | PROVIDERS: PCP Family Medicine; Visit Provider Family Medicine | DX: I10 Essential (primary) hypertension (principal); E78.5 Hyperlipidemia, unspecified; E83.119 Hemochromatosis, unspecified | CPT/HCPCS: 80053; 80061; 85025 ==